=== PATIENT | female | born 1955 | race African-American/Black ===

== ENCOUNTER 2016-10-05 05:33 | Day surgery (SDC) | payer OTHER ==
[~2016-10-05] VITALS: Ht 162.6 cm; Wt 95.6 kg
[2016-10-05] VITALS (19 sets, daily range): BP systolic 115–145; BP diastolic 67–92; PULSE 58–80; RESP 6–18; Ht 162.6 cm; Wt 95.6 kg
[~2016-10-05 05:33] MED LIST: ACET500C5 PO; ADV25050 INH; ALBU8.5H3 INH; ALBU8.5H5 INH; AMLO-218 PO; AUG875 PO; AZIT250T94 PO; AZIT500T5 PO; CETI10CA PO; CYCL-319 PO; FLUC100T PO; HYDR-3498 PO; LISI-525 PO; MED4DP PO; MELO-109 PO; OSLT75C PO; PRED20TA PO; UDROBDM PO
[2016-10-05] MEDS ORDERED: CYCL-319 PO (06:41)
[2016-10-05] MEDS ORDERED: MOME13HF INHALATION (06:41)
[2016-10-05] MEDS ORDERED: SULI150T39 PO (06:41)
[2016-10-05] MEDS ORDERED: GABA300C16 PO (06:41)
[2016-10-05] MEDS ORDERED: VIT1TABL85 PO (06:41)
[2016-10-05] MEDS ORDERED: FOLI-49 PO (06:41)
[2016-10-05] MEDS ORDERED: PROPOFOL 20 ML ONE (07:23)
[2016-10-05] MEDS ORDERED: DEXAMETHASONE 4 MG/ML 1 ML INJ ONE (07:24)
[2016-10-05] MEDS ORDERED: LIDOCAINE 1% (MDV) 20 ML INJ ONE (07:24)
[2016-10-05] MEDS ORDERED: FENTAnyl 50 MCG/ML VIAL ONE ×2 (07:24→09:04)
[2016-10-05] MEDS ORDERED: ONDANSETRON 4 MG INJ ONE (07:24)
[2016-10-05] MEDS ORDERED: MIDAZOLAM 1 MG/ML 2 ML INJ ONE ×2 (07:24→09:07)
[2016-10-05] MEDS ORDERED: LACTATED RINGER'S 1,000 ML IV SCH (07:30)
[2016-10-05] MEDS ORDERED: EPINEPHrine 1 MG/ML 30 ML INJ ONE (07:31)
[2016-10-05] MEDS ORDERED: ACETAMINOPHEN 1000MG/100ML IV 100 ML ONE (08:06)
[2016-10-05] MEDS ORDERED: morphine SULFATE/PF (10 MG/10 ML) INJ ONE (08:33)
[2016-10-05] MEDS ORDERED: ALBUTEROL 0.083% (NEB) 2.5 MG/3 ML AMP HHN ONE (09:00)
[2016-10-05] MEDS ORDERED: FENTAnyl 50 MCG/ML VIAL IV PRN ×2 (09:00)
[2016-10-05] MEDS ORDERED: ONDANSETRON 4 MG INJ IV PRN (09:00)
[2016-10-05] MEDS ORDERED: MIDAZOLAM 1 MG/ML 2 ML INJ IV PRN (09:00)
[2016-10-05] MEDS ORDERED: LABETALOL HCL 20MG INJ IV PRN (09:00)
[2016-10-05] MEDS ORDERED: HYDROCODONE/APAP (5/325) TAB PO PRN ×2 (09:00)
[2016-10-05] MEDS ORDERED: HYDROmorphONE (0.2 MG/ML) 10ML SYG IV PRN ×2 (09:00)
[2016-10-05] MEDS ORDERED: LEVALBUTEROL (NEB) 0.63 MG/3 ML AMP HHN ONE (09:00)
[2016-10-05] MEDS ORDERED: hydrALAzine 20 MG INJ IV PRN (09:00)
[2016-10-05] MEDS ORDERED: HYDROmorphONE (0.2 MG/ML) 10ML SYG IV ONE (09:07)
[2016-10-05] MEDS ORDERED: DIPHENHYDRAMINE 50 MG INJ ONE (09:07)
[2016-10-05] MEDS: HYDROmorphONE (0.2 MG/ML) 10ML SYG IV PRN ×3 (09:10→09:36)
[2016-10-05] MEDS ORDERED: LEVALBUTEROL (NEB) 1.25 MG/0.5 ML AMP ONE (09:12)
[2016-10-05] MEDS ORDERED: ALBUTEROL 0.5% (NEB) 2.5 MG/0.5 ML AMP ONE (09:12)
[2016-10-05] MEDS ORDERED: ALBUTEROL 0.083% (NEB) 2.5 MG/3 ML AMP ONE (09:16)
--- NOTE | 2016-10-05 09:25 | OPR ---
Date/Time of Note Date/Time of Note DATE: 10/05/16 TIME: 09:16 Operative Report Free Text/Dictation Note on Lili Ahuja ACR IX medical number is the [id number] Preoperative diagnosis torn medial meniscus torn lateral Meniscus synovitis right knee postop postop diagnosis the same Procedure diagnostic arthroscopy partial medial meniscectomy partial lateral meniscectomy sinusectomy Smith dressing Anesthesia general Bleeding none Complications none Operative procedure patient was transferred to the operating room placed on the table in supine position general anesthesia was induced 2 g Ancef was given IV right lower extremity was prepped and draped in the routine fashion landmarks were marked through 2 regular anterior portals partial patellar tendon, medial lateral approach arthroscopy was commenced Examination suprapatellar pouch showed normal finding except for synovitis in the suprapatellar pouch patellofemoral space acute sigmoid 2-3 chondromalacia on both patella side and the trochlea side medial lateral gutter was cleared of loose body exam showed synovitis involve going to medial compartment 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 There was synovitis into the intercondylar coagulation was then sent laminectomy was prepped Going to the lateral compartment indicated grade 2 to early grade III chondromalacia on the surface in both sides and there was a flap tear anteriorly middle third and also at the room which was taken by taking care of partial meniscectomy care and to stable margins synovitis also was present which was going through his patella pouch to the synovectomy was performed in the medial lateral gutter and suprapatellar puncture. Knee joint was evacuated from degrees with copious amounts of saline irrigation portal was closed with benzoin and Steri-Strip 10 mg Duramorph mixed with 10 cc of injectable saline was injected into the knee. sterile Smith dressing was applied. Procedure was terminated general anesthesia. Patient was taken to recovery room in stable condition LUIS LOERA MD Oct 05, 2016 09:25
== END 2016-10-05 12:06 | disposition home or self-care (01) ==
LOC: SDS 05:33
PROVIDERS: ATTEND Internal Medicine Endocrinology, Diabetes & Metabolism
DX: M23.251 Derangement of posterior horn of lateral meniscus due to old tear or injury, right knee (principal); M23.221 Derangement of posterior horn of medial meniscus due to old tear or injury, right knee; M65.861 Other synovitis and tenosynovitis, right lower leg; I10 Essential (primary) hypertension; J45.909 Unspecified asthma, uncomplicated
CPT/HCPCS: 29880; 94664; C1713; J0131; J0171; J1100; J1170; J2250; J2274; J2405; J3010; Z7512; Z7610; J1200

== ENCOUNTER 2016-10-08 10:53 | Emergency (ER) | payer OTHER ==
[~2016-10-08] VITALS: Ht 162.6 cm; Wt 96.0 kg
[~2016-10-08 10:53] MED LIST changes: -ADV25050 INH; -ALBU8.5H3 INH; -AUG875 PO; -AZIT250T94 PO; -AZIT500T5 PO; -CETI10CA PO; -FLUC100T PO; +FOLI-49 PO; +GABA300C16 PO; -MED4DP PO; -MELO-109 PO; +MOME13HF INHALATION; -OSLT75C PO; -PRED20TA PO; +SULI150T39 PO; -UDROBDM PO; +VIT1TABL85 PO
[2016-10-08 10:55] VITALS: Ht 162.6 cm; Wt 96.0 kg
[2016-10-08] MEDS ORDERED: ERYTOPOI BOTH EYES (11:11)
[2016-10-08] MEDS ORDERED: NAPH15DR OP (11:11)
[2016-10-08] MEDS ORDERED: BEN25 PO (11:11)
--- NOTE | 2016-10-08 11:17 | ERD ---
ER Documentation Chief Complaint Date/Time DATE: 10/08/16 TIME: 11:12 Chief Complaint bilateral eyes - redness, itchiness, sore swollen started yesterday HPI 61-year-old female presents with bilateral eye redness that began last night. sHe is not diabetic. She states that since then has been getting worse and now she has swelling in the left eyelid. It is itchy but she also has pain. She has photosensitivity. She does not wear contacts. Denies possibility of foreign body. ROS All systems reviewed and are negative except as per history of present illness. Medications Home Meds Active Scripts Naphazoline Hcl/Phenir Mal (Naphcon-A Eye Drops) 15 Ml Drops, 15 ML OP BID for 7 Days, BOTTLE Prov:CJ NGUYEN PA-C 10/08/16 Erythromycin* (Erythromycin* Ophthalmic) 1 Applic Oint, 1 APPLIC BOTH EYES QID for 7 Days, EA Prov:CJ NGUYEN PA-C 10/08/16 Diphenhydramine Hcl* (Benadryl*) 25 Mg Cap, 25 MG PO Q6, #30 CAP Prov:CJ NGUYEN PA-C 10/08/16 Cyclobenzaprine Hcl* (Cyclobenzaprine Hcl*) 10 Mg Tablet, 10 MG PO TID, #15 TAB Prov:LEI ESPOSITO PA-C 02/22/16 Acetaminophen* (Tylophen*) 500 Mg Capsule, 1 CAP PO Q6H Y for PAIN AND OR ELEVATED TEMP, #30 CAP Prov:LEI ESPOSITO PA-C 02/22/16 Hydrocodone Bit-Acetaminophen* (Mcgregor*) 5-325 Mg Tab, 1 TAB PO Q6 Y for PAIN, # 10 TAB Prov:MAHENDRA BRADSHAW PA-C 10/31/15 Albuterol Sulfate* (Albuterol Sulfate* HFA) 8.5 Gm Hfa.aer.ad, 1-2 PUFF INH Q4 Y for SHORTNESS OF BREATH, #1 EA Prov:OSCAR FIELDS PA-C 02/17/15 Lisinopril* (Zestril*) 20 Mg Tab, 20 MG PO DAILY for 30 Days Prov:TESSA LO 10/24/14 Amlodipine Besylate* (Norvasc*) 10 Mg Tab, 10 MG PO DAILY for 30 Days Prov:TESSA LO 10/24/14 Reported Medications Vit D3/Folic Acid/B2/B6/B12 (Folgard Tablet) 1 Each Tablet, 1 TAB PO DAILY, TAB 10/05/16 Gabapentin* (Gabapentin*) 300 Mg Capsule, 300 MG PO BID, #60 CAP 10/05/16 Mometasone-Formoterol (Dulera) 200-5 Mcg/Inh - 13 Gm Hfa.aer.ad, 1 PUFFS INHALATION BID, #1 INHALER 10/05/16 Folic Acid* (Folic Acid*) 1 Mg Tablet, 1 MG PO DAILY, TAB 10/05/16 Cyclobenzaprine Hcl* (Cyclobenzaprine Hcl*) 10 Mg Tablet, 10 MG PO TID, #90 TAB 10/05/16 Sulindac* (Sulindac*) 150 Mg Tablet, 150 MG PO TID, TAB 10/05/16 Discontinued Scripts Acetaminophen* (Tylophen*) 500 Mg Capsule, 1 CAP PO Q6H Y for PAIN AND OR ELEVATED TEMP, #30 CAP Prov:MAHENDRA BRADSHAW PA-C 06/12/16 Cetirizine Hcl* (Zyrtec*) 10 Mg Capsule, 10 MG PO DAILY, #10 TAB.CHEW Prov:MAHENDRA BRADSHAW PA-C 06/12/16 Guaifenesin-Dextromethorphan* (Robitussin* DM) 100MG/10MG/5ML Syrup, 10 ML PO Q4H Y for COUGH for 7 Days, ML Prov:MAHENDRA BRADSHAW PA-C 06/12/16 Azithromycin* (Zithromax*) 250 Mg Tablet, 250 MG PO .CHRISTIAN DIRECTED, #6 TAB TAKE 500 MG (2 TABS) THE FIRST DAY THEN 250 MG (1 TAB) DAYS 2-5 Prov:MAHENDRA BRADSHAW PA-C 06/12/16 Meloxicam* (Meloxicam*) 7.5 Mg Tablet, 7.5 MG PO DAILY, #20 TAB Prov:MAHENDRA BRADSHAW PA-C 10/31/15 Oseltamivir Phosphate* (Tamiflu*) 75 Mg Capsule, 75 MG PO BID for 5 Days, CAP Prov:JHONATAN BATES 06/21/15 Azithromycin* (Azithromycin*) 500 Mg Tablet, 500 MG PO DAILY, #5 TAB Prov:JHONATAN BATES 06/21/15 Albuterol Sulfate* (Proair HFA*) 8.5 Gm Hfa.aer.ad, 2 PUFF INH Q4, #1 INHALER Prov:JHONATAN BATES 06/21/15 Prednisone* (Prednisone*) 20 Mg Tab, 60 MG PO DAILY for 5 Days, TAB Prov:JHONATAN BATES 06/21/15 Prednisone* (Prednisone*) 20 Mg Tab, 40 MG PO DAILY for 4 Days, TAB Prov:MARCKARTHIK M. 03/14/15 Azithromycin* (Zithromax*) 250 Mg Tablet, 250 MG PO .CHRISTIAN DIRECTED, #6 TAB TAKE 500 MG (2 TABS) THE FIRST DAY THEN 250 MG (1 TAB) DAYS 2-5 Prov:KARTHIK TRAN M. 03/14/15 Prednisone* (Prednisone*) 20 Mg Tab, 40 MG PO DAILY for 4 Days, TAB Prov:OSCAR FIELDS PA-C 02/17/15 Methylprednisolone* (Medrol* DOSE PACK) 4 Mg/Dose-Pack Tab.ds.pk, 4 MG PO . DIRECTED, #1 PACKET Prov:TESSA LO 10/24/14 Fluconazole* (Diflucan*) 100 Mg Tab, 100 MG PO DAILY, #7 Prov:TESSA LO 10/24/14 Amoxicillin-Clavulanate K* (Augmentin*) 875 Mg Tab, 875 MG PO BID for 10 Days, TAB Prov:TESSA LO 10/24/14 Salmeterol Xinaf/Fluticasone* (Advair*) 1 Inh Inha, 1 INH INH BID for 30 Days Prov:TESSA LO 10/24/14 Allergies Allergies: Coded Allergies: iodine (Verified Allergy, Severe, 06/12/16) THROAT SWOLLEN Uncoded Allergies: SHRIMP (Allergy, Severe, FACE SWOLLEN, 10/19/14) PMhx/Soc History of Surgery: Yes (L knee surgery September 2016) Anesthesia Reaction: No Hx Neurological Disorder: No Hx Respiratory Disorders: Yes (ASTHMA) Hx Cardiac Disorders: Yes (HTN) Hx Psychiatric Problems: No Hx Miscellaneous Medical Probl: No Hx Alcohol Use: Yes (SOCIALLY) Hx Substance Use: No Hx Tobacco Use: No FmHx Family History: No diabetes Physical Exam Vitals Vital Signs Date Time Temp Pulse Resp B/P Pulse Ox O2 Delivery O2 Flow Rate FiO2 10/08/16 10:55 98.7 81 19 158/77 96 Physical Exam Const: [] Head: Atraumatic Eyes: Bilateral conjunctiva is markedly injected, no crusting noted, extraocular movements intact, pupils equal round reactive to light ENT: Normal External Ears, Nose and Mouth. Neck: Full range of motion..~ No meningismus. Resp: Clear to auscultation bilaterally Cardio: Regular rate and rhythm, no murmurs Results 24 hrs Current Medications Medications (Trade) Dose Ordered Sig/Esme Route PRN Reason Start Time Stop Time Status Last Admin Dose Admin Dexamethasone (Decadron) 10 mg ONCE ONCE PO 10/08/16 11:30 10/08/16 11:31 Procedures/MDM 61-year-old female presents with what is most likely conjunctivitis. I doubt any ocular emergency. Both myself and my supervising physician Dr. haddad examined the patient and we agree she is suitable for outpatient management. She was given Decadron here in the emergency room and discharged with Benadryl, erythromycin ophthalmic ointment and Naphcon eyedrops. . She was also given outpatient ophthalmology follow-up. Recommended this patient follow up with her primary care doctor within 48 hours or return to the emergency room for any worsening of symptoms. However this time I do believe there is suitable for outpatient management. I answered all their questions and they agreed with the plan and were discharged home. Departure Diagnosis: Primary Impression: Conjunctivitis Condition: Stable Patient Instructions: Conjunctivitis, Non-Specific Referrals: [facility] Hours: Mon - Fri 9:00 AM - 5:00 PM Additional Instructions: Call your primary care doctor TOMORROW for an appointment during the next 1-2 days.See the doctor sooner or return here if your condition worsens before your appointment time. CJ NGUYEN PA-C Oct 08, 2016 11:17
[2016-10-08] MEDS ORDERED: DEXAMETHASONE 10 MG/ML 1 ML INJ PO ONE (11:30)
== END 2016-10-08 11:30 | disposition home or self-care (01) ==
LOC: FTE 10:53
DX: H10.9 Unspecified conjunctivitis (principal); J45.909 Unspecified asthma, uncomplicated; I10 Essential (primary) hypertension
CPT/HCPCS: J1100; Z7502; 99283